=== PATIENT | female | born 1950 | race Caucasian/White ===

== ENCOUNTER 2017-02-27 05:29 | Emergency (ER) | payer MEDICARE ==
[~2017-02-27] VITALS: Ht 154.9 cm; Wt 41.0 kg
[~2017-02-27 05:29] MED LIST: ASPIRIN E.C. 8181 MG PO; BECONASE AQ NA42 MCG NAS; BUSPAR10 MG PO; CALCIUM500 MG PO; CEPHALEXIN500 M1 PO; COZAAR100 MG PO; DESYREL 50MG50 MG; LORTAB 5/500 501 TAB PO; MACROBID 1100 MG/CAP PO; MULTIVITAMIN1 CTB PO; OYSCO 500500 M1 PO; PRILOSEC 20MG20 MG PO; PROTONIX 40MG T40 MG PO; ULTRAM 50MG TAB50 MG PO; VALIUM 2MG T2 MG/TAB PO; VALIUM 5MG T5 MG/TAB PO; ZOCOR 20MG20 MG PO; ZOFRAN ODT4 MG PO; ZOLOFT 50MG50 MG PO
[2017-02-27 05:32] VITALS: BP 152/87; TEMP 99
[2017-02-27 06:02] LABS: BASO % 0.4 % (0.0-2.0); EOS # 0.4 (0.0-0.7); EOS % 3.7 % (0-4.0); GRAN # 7.1 (1.4-6.5); GRAN % 74.1 % (42.2-75.2); HEMOGLOBIN 12.4 g/dl (12.5-16.0); LYMPH # 0.7 (1.2-3.4); LYMPH % 7.6 % (20.0-51.0); MEAN CELL VOLUME 95 fl (80.0-100.0); MEAN CORPUSCULAR HEMOGLOBIN 35 pg (27.0-31.0); MEAN CORPUSCULAR HGB CONC 37 g/dl (33.0-37.0); MONO # 1.3 (0.1-0.6); MONO % 13.6 % (1.7-9.3); PLATELET COUNT 180 K/mm3 (130-400); RED BLOOD COUNT 3.59 M/mm3 (4.10-5.30); REDCELL DISTRIBUTION WIDTH-CV 12.9 % (11.5-14.5); WHITE BLOOD COUNT 9.5 K/mm3 (4.8-10.8)
[2017-02-27 06:18] LABS: ADJUSTED CALCIUM 8.5 mg/dL (8.4-10.2); ALBUMIN 3.7 gm/dL (3.5-5.0); BILIRUBIN,TOTAL 0.8 mg/dL (0.0-1.0); CALCIUM 8.3 mg/dL (8.4-10.2); CREATININE, serum 0.52 mg/dL (0.52-1.25); POTASSIUM 3.5 mmol/L (3.4-5.0)
[2017-02-27 09:06] LABS: ANION GAP 10 mmol/L (7-16); CALCIUM 7.2 mg/dL (8.4-10.2); CARBON DIOXIDE 17 mmol/L (22-30); CHLORIDE 100 mmol/L (98-107); CREATININE, serum 0.57 mg/dL (0.52-1.25); GLUCOSE 123 mg/dL (74-106); POTASSIUM 3.5 mmol/L (3.4-5.0); SODIUM 126 mmol/L (137-145)
[2017-02-27 09:08] LABS: BLOOD UREA NITROGEN < 2 mg/dL (7-17)
[2017-02-27] MEDS ORDERED: LIBRIUM 25M25 MG/CAP PO (09:24)
[2017-02-27] MEDS ORDERED: LOMOTIL 0.025 M1 TAB PO (09:26)
[2017-02-27 09:41] VITALS: PULSE 101
== END 2017-02-27 09:42 | disposition left against medical advice (07) ==
LOC: COL.ER 05:29
PROVIDERS: Emergency Medicine
DX: F10.230 Alcohol dependence with withdrawal, uncomplicated (principal); E87.8 Other disorders of electrolyte and fluid balance, not elsewhere classified; K52.9 Noninfective gastroenteritis and colitis, unspecified; I10 Essential (primary) hypertension; F17.210 Nicotine dependence, cigarettes, uncomplicated; K21.9 Gastro-esophageal reflux disease without esophagitis
CPT/HCPCS: J2765; J3360; J3411; J3475; J7030

== ENCOUNTER → 2017-03-10 | Outpatient (CLI) | payer MEDICARE ==
[~2017-03-10] MED LIST changes: +K-DUR20 MEQ PO; +LEVAQUIN 5500 MG/TA1; +LIBRIUM 10M10 MG/CAP PO; +LIBRIUM 25M25 MG/CAP PO; +LIDODERM 5% PATC1 EA TP; +LOMOTIL 0.025 M1 TAB PO; +MAG-OX 400400 MG/TAB PO; +MULTIPLE VITAMI1 CAP PO; +TRIAMCINOLONE A15 G3 TP; +TYLENOL 325MG325 MG PO
[2017-03-10 12:49] LABS: BILIRUBIN,TOTAL 0.6 mg/dL (0.0-1.0); CALCIUM 8.2 mg/dL (8.4-10.2); CREATININE, serum 0.5 mg/dL (0.52-1.25); POTASSIUM 3.7 mmol/L (3.4-5.0); TOTAL PROTEIN 6.2 gm/dL (6.4-8.2)
== END ==
LOC: COL.RAD 10:56
PROVIDERS: Family Medicine
DX: Z02.89 Encounter for other administrative examinations (principal)

== ENCOUNTER 2017-03-11 10:55 | Inpatient (IN) | payer MEDICARE ==
[~2017-03-11] VITALS: Ht 154.9 cm; Wt 43.4 kg
[~2017-03-11 10:55] MED LIST changes: -K-DUR20 MEQ PO; -LEVAQUIN 5500 MG/TA1; -LIBRIUM 10M10 MG/CAP PO; -LIDODERM 5% PATC1 EA TP; -MAG-OX 400400 MG/TAB PO; -MULTIPLE VITAMI1 CAP PO; -TRIAMCINOLONE A15 G3 TP; -TYLENOL 325MG325 MG PO
[2017-03-11 11:28] VITALS: BP 121/63; PULSE 95; TEMP 100.5
[2017-03-11 12:56] VITALS: TEMP 100.1
[2017-03-11 15:30] LABS: BASO # 0.1 (0.0-0.2); BASO % 1.3 % (0.0-2.0); EOS # 0.4 (0.0-0.7); EOS % 4.7 % (0-4.0); GRAN # 5.3 (1.4-6.5); GRAN % 70.3 % (42.2-75.2); HEMATOCRIT 32.6 % (37.0-47.0); HEMOGLOBIN 11.2 g/dl (12.5-16.0); LYMPH % 13.3 % (20.0-51.0); MEAN CELL VOLUME 98 fl (80.0-100.0); MEAN CORPUSCULAR HEMOGLOBIN 34 pg (27.0-31.0); MEAN CORPUSCULAR HGB CONC 34 g/dl (33.0-37.0); MEAN PLATELET VOLUME 8.7 fl (7.4-10.4); MONO # 0.7 (0.1-0.6); MONO % 9.7 % (1.7-9.3); PLATELET COUNT 554 K/mm3 (130-400); RED BLOOD COUNT 3.34 M/mm3 (4.10-5.30); REDCELL DISTRIBUTION WIDTH-CV 13.2 % (11.5-14.5); WHITE BLOOD COUNT 7.5 K/mm3 (4.8-10.8)
[2017-03-11 15:40] LABS: ADJUSTED CALCIUM 9.1 mg/dL (8.4-10.2); ALANINE AMINOTRANSFERASE 30 U/L (9-52); ALBUMIN 2.7 gm/dL (3.5-5.0); ALKALINE PHOSPHATASE 100 U/L (50-136); ANION GAP 9 mmol/L (7-16); BILIRUBIN,TOTAL 0.6 mg/dL (0.0-1.0); BLOOD UREA NITROGEN 7 mg/dL (7-17); CALCIUM 8.1 mg/dL (8.4-10.2); CARBON DIOXIDE 25 mmol/L (22-30); CHLORIDE 96 mmol/L (98-107); CREATININE, serum 0.52 mg/dL (0.52-1.25); GLUCOSE 83 mg/dL (74-106); MAGNESIUM 1.4 mg/dL (1.6-2.3); POTASSIUM 3.4 mmol/L (3.4-5.0); SODIUM 130 mmol/L (137-145); TOTAL PROTEIN 5.5 gm/dL (6.4-8.2)
[2017-03-11 15:50] LABS: B-TYPE NATRIURETIC PEPTIDE 9230 pg/mL (0-125); TROPONIN-I < 0.012 ng/mL (0.000-0.034)
[2017-03-11 15:59] LABS: ERYTHROCYTE SEDIMENTATION RATE 16 mm/hr (0-30)
[2017-03-11 16:08] LABS: THYROID STIMULATING HORMONE 0.476 uIU/mL (0.465-4.680)
[2017-03-11 16:40] VITALS: BP 115/47; PULSE 102; TEMP 98
[2017-03-11 16:59] LABS: PH 6 (5-8); URINE APPEARANCE Clear; URINE BACTERIA Rare /hpf; URINE BILIRUBIN Negative (NEGATIVE); URINE BLOOD Negative (NEGATIVE); URINE COLOR Yellow; URINE GLUCOSE Negative (NEGATIVE); URINE KETONE Trace (NEGATIVE); URINE RBC 0-2 /hpf; URINE UROBILINOGEN Negative (NEGATIVE); URINE WBC 0-2 /hpf
[2017-03-11 17:04] LABS: AMPHETAMINE URINE NEGATIVE; BARBITURATES URINE NEGATIVE; BENZODIAZEPINES URINE POSITIVE; BUPRENORPHINE URINE NEGATIVE; METHADONE URINE NEGATIVE; OPIATES URINE NEGATIVE; OXYCODONE URINE NEGATIVE; PHENCYCLIDINE URINE NEGATIVE; PROPOXYPHENE URINE NEGATIVE; THC CANNABINOIDS URINE NEGATIVE
[2017-03-11 21:18] VITALS: BP 112/51; PULSE 88; TEMP 98.8
[2017-03-12 00:02] VITALS: BP 131/50; PULSE 92; TEMP 98.5
[2017-03-12 02:36] VITALS: BP 111/52; PULSE 90; TEMP 97.4
[2017-03-12 08:09] VITALS: BP 111/56; PULSE 89; TEMP 98.3
[2017-03-12 12:13] VITALS: BP 129/53; PULSE 91; TEMP 99.8
[2017-03-12 12:20] LABS: CALCIUM 7.9 mg/dL (8.4-10.2); CREATININE, serum 0.49 mg/dL (0.52-1.25); POTASSIUM 3.9 mmol/L (3.4-5.0)
[2017-03-12 13:19] LABS: CEREBROSPINAL TUBE #3; CSF APPEARANCE CLEAR; CSF COLOR COLORLESS
[2017-03-12 15:59] LABS: THYROID STIMULATING HORMONE 0.637 uIU/mL (0.465-4.680)
[2017-03-12 16:06] VITALS: BP 107/55; PULSE 78; TEMP 98.1
[2017-03-12 20:06] VITALS: BP 138/70; PULSE 97; TEMP 98.7
[2017-03-13 00:19] VITALS: BP 134/72; PULSE 98; TEMP 98.1
[2017-03-13 07:19] VITALS: BP 127/63; PULSE 97; TEMP 98
[2017-03-13 07:50] LABS: BASO # 0.1 (0.0-0.2); BASO % 1.8 % (0.0-2.0); EOS # 0.5 (0.0-0.7); EOS % 6.8 % (0-4.0); GRAN % 68.4 % (42.2-75.2); LYMPH % 13.3 % (20.0-51.0); MEAN CELL VOLUME 98 fl (80.0-100.0); MEAN CORPUSCULAR HGB CONC 34 g/dl (33.0-37.0); MEAN PLATELET VOLUME 8.8 fl (7.4-10.4); MONO # 0.7 (0.1-0.6); PLATELET COUNT 526 K/mm3 (130-400); RED BLOOD COUNT 3.42 M/mm3 (4.10-5.30); REDCELL DISTRIBUTION WIDTH-CV 13.2 % (11.5-14.5); WHITE BLOOD COUNT 7.2 K/mm3 (4.8-10.8)
[2017-03-13 07:57] LABS: HEMATOCRIT 33.5 % (37.0-47.0); HEMOGLOBIN 11.3 g/dl (12.5-16.0); MEAN CORPUSCULAR HEMOGLOBIN 33 pg (27.0-31.0)
[2017-03-13 08:02] LABS: CALCIUM 7.7 mg/dL (8.4-10.2); CREATININE, serum 0.52 mg/dL (0.52-1.25); POTASSIUM 4.1 mmol/L (3.4-5.0)
[2017-03-13 11:36] VITALS: BP 149/72; PULSE 87; TEMP 98.7
[2017-03-13 15:07] VITALS: BP 111/54; BP 94/53; PULSE 100; TEMP 100.4
[2017-03-13 21:30] VITALS: BP 100/53; PULSE 81; TEMP 99.8
[2017-03-14 01:35] VITALS: BP 111/61; PULSE 78; TEMP 98.3
[2017-03-14 04:58] VITALS: BP 125/58; PULSE 104; TEMP 99.4
[2017-03-14 08:31] VITALS: BP 123/63; PULSE 87; TEMP 99
[2017-03-14 09:20] LABS: MEAN CELL VOLUME 97 fl (80.0-100.0); MEAN CORPUSCULAR HGB CONC 34 g/dl (33.0-37.0); PLATELET COUNT 500 K/mm3 (130-400); RED BLOOD COUNT 3.33 M/mm3 (4.10-5.30); REDCELL DISTRIBUTION WIDTH-CV 13.3 % (11.5-14.5); WHITE BLOOD COUNT 7.1 K/mm3 (4.8-10.8)
[2017-03-14 09:23] LABS: HEMATOCRIT 32.4 % (37.0-47.0); HEMOGLOBIN 11.1 g/dl (12.5-16.0); MEAN CORPUSCULAR HEMOGLOBIN 33 pg (27.0-31.0)
[2017-03-14 09:24] LABS: ADD PATHOLOGY DIFF REVIEW NO
[2017-03-14 09:27] LABS: CALCIUM 7.9 mg/dL (8.4-10.2); CREATININE, serum 0.55 mg/dL (0.52-1.25); POTASSIUM 3.4 mmol/L (3.4-5.0)
[2017-03-14 10:19] LABS: BAND 28 % (0-10); EOSINOPHIL 3 % (0-4); NEUTROPHILS 57 % (42.0-75.2); PLATELET ESTIMATE INCREASED (NORMAL); TOTAL CELLS COUNTED 100
[2017-03-14 11:02] VITALS: BP 98/45; PULSE 90; TEMP 97.9
[2017-03-14] MEDS ORDERED: MULTIPLE VITAMI1 CAP PO (11:42)
[2017-03-14] MEDS ORDERED: LIBRIUM 10M10 MG/CAP PO (11:51)
[2017-03-14 13:09] VITALS: BP 98/45; PULSE 90; TEMP 97.9
[2017-03-14 15:57] LABS: ALBUMIN FRACTION 2.7 g/dL (2.6-4.5); ALBUMIN PERCENTAGE 48.7 % (48.7-61.8); ALPHA 1 FRACTION 0.5 g/dL (0.3-0.5); ALPHA 1 PERCENTAGE 8.6 % (3.4-8.3); ALPHA 2 FRACTION 0.9 g/dL (0.6-1.2); ALPHA 2 PERCENTAGE 16.6 % (8.4-17.5); BETA 1 FRACTION 0.2 g/dL (0.4-0.6); BETA 1 PERCENTAGE 4.3 % (5.4-8.9); BETA 2 FRACTION 0.3 g/dL (0.2-0.5); GAMMA FRACTION 0.9 g/dL (0.4-1.7); GAMMA PERCENTAGE 16.8 % (8.1-23.0); SERUM PROTEIN TOTAL 5.5 g/dL (6.0-7.6)
== END 2017-03-14 13:57 | DRG 74 ==
LOC: MEDICAL 10:55
PROVIDERS: Internal Medicine; Physician Assistant; Psychiatry & Neurology Neurology
PROC: 009U3ZX Drainage of Spinal Canal, Percutaneous Approach, Diagnostic (ICD-10-PCS; principal; 2017-03-12)
DX: G61.81 Chronic inflammatory demyelinating polyneuritis (principal); E87.1 Hypo-osmolality and hyponatremia; E44.0 Moderate protein-calorie malnutrition; Z68.1 Body mass index [BMI] 19.9 or less, adult; G62.1 Alcoholic polyneuropathy; I10 Essential (primary) hypertension; D64.9 Anemia, unspecified; F10.20 Alcohol dependence, uncomplicated; Z87.891 Personal history of nicotine dependence
CPT/HCPCS: 99222-AI; 99233-AI; 99239; A9585; J1650; J3411; J3475; J7030

== ENCOUNTER 2017-03-14 11:13 | Inpatient (IN) | payer MEDICARE ==
[~2017-03-14] VITALS: Ht 154.9 cm; Wt 43.0 kg
[2017-03-14] MEDS ORDERED: MULTIPLE VITAMI1 CAP PO (11:42)
[2017-03-14] MEDS ORDERED: LIBRIUM 10M10 MG/CAP PO (11:51)
[2017-03-14 14:52] VITALS: BP 113/58; PULSE 81; TEMP 98.2
[2017-03-15 04:48] VITALS: BP 136/61; PULSE 99; TEMP 98.8
[2017-03-15 17:20] VITALS: BP 121/58; PULSE 89; TEMP 97.5
[2017-03-16 06:14] VITALS: BP 141/59; PULSE 94; TEMP 98.9
[2017-03-16 17:05] VITALS: BP 136/76; PULSE 79; TEMP 97.6
[2017-03-17 05:22] VITALS: BP 134/64; PULSE 84; TEMP 98.3
[2017-03-17 16:35] VITALS: BP 157/68; PULSE 92; TEMP 98.6
[2017-03-18 04:07] VITALS: BP 150/75; PULSE 102; TEMP 98.6
[2017-03-18 07:24] LABS: BASO # 0.1 (0.0-0.2); BASO % 1.5 % (0.0-2.0); EOS # 0.7 (0.0-0.7); EOS % 7.2 % (0-4.0); GRAN # 6.8 (1.4-6.5); GRAN % 73.7 % (42.2-75.2); LYMPH # 0.9 (1.2-3.4); LYMPH % 9.8 % (20.0-51.0); MEAN CELL VOLUME 95 fl (80.0-100.0); MEAN CORPUSCULAR HGB CONC 34 g/dl (33.0-37.0); MEAN PLATELET VOLUME 9.3 fl (7.4-10.4); MONO # 0.6 (0.1-0.6); PLATELET COUNT 448 K/mm3 (130-400); RED BLOOD COUNT 3.53 M/mm3 (4.10-5.30); REDCELL DISTRIBUTION WIDTH-CV 13.5 % (11.5-14.5); WHITE BLOOD COUNT 9.2 K/mm3 (4.8-10.8)
[2017-03-18 07:26] LABS: HEMATOCRIT 33.6 % (37.0-47.0); HEMOGLOBIN 11.5 g/dl (12.5-16.0); MEAN CORPUSCULAR HEMOGLOBIN 33 pg (27.0-31.0)
[2017-03-18 07:37] LABS: ADJUSTED CALCIUM 9.4 mg/dL (8.4-10.2); ALBUMIN 2.7 gm/dL (3.5-5.0); BILIRUBIN,TOTAL 0.4 mg/dL (0.0-1.0); CALCIUM 8.4 mg/dL (8.4-10.2); CREATININE, serum 0.54 mg/dL (0.52-1.25); MAGNESIUM 1.3 mg/dL (1.6-2.3); POTASSIUM 3.5 mmol/L (3.4-5.0); TOTAL PROTEIN 5.7 gm/dL (6.4-8.2)
[2017-03-18 17:39] VITALS: BP 124/68; PULSE 90; TEMP 98
[2017-03-19 04:59] VITALS: BP 131/60; PULSE 93; TEMP 98.9
[2017-03-19 16:16] VITALS: BP 111/57; PULSE 93; TEMP 99.4
[2017-03-20 04:13] VITALS: BP 115/58; PULSE 88; TEMP 99
[2017-03-20 18:00] VITALS: BP 129/78; PULSE 96; TEMP 99.5
[2017-03-21 03:46] VITALS: BP 107/63; PULSE 94; TEMP 98.1
[2017-03-21 07:29] LABS: CALCIUM 9.3 mg/dL (8.4-10.2); CREATININE, serum 0.53 mg/dL (0.52-1.25); MAGNESIUM 1.9 mg/dL (1.6-2.3); POTASSIUM 4.6 mmol/L (3.4-5.0)
[2017-03-21 17:03] VITALS: BP 110/53; PULSE 83; TEMP 98.1
[2017-03-22 04:54] VITALS: BP 101/47; PULSE 94; TEMP 97.4
[2017-03-22 18:12] VITALS: BP 145/64; PULSE 99; TEMP 98.7
[2017-03-23 04:40] VITALS: BP 136/57; PULSE 92; TEMP 98.8
[2017-03-23 17:12] VITALS: BP 132/56; PULSE 96; TEMP 99.5
[2017-03-24 05:45] VITALS: BP 124/80; PULSE 91; TEMP 98.6
[2017-03-24 18:00] VITALS: BP 148/60; PULSE 89; TEMP 99.8
[2017-03-25 05:47] VITALS: BP 112/80; PULSE 92; TEMP 97.5
[2017-03-25] MEDS ORDERED: TYLENOL 325MG325 MG PO (11:22)
[2017-03-25] MEDS ORDERED: K-DUR20 MEQ PO (11:23)
[2017-03-25] MEDS ORDERED: MAG-OX 400400 MG/TAB PO (11:24)
[2017-03-25] MEDS ORDERED: LIDODERM 5% PATC1 EA TP (11:25)
[2017-03-25] MEDS ORDERED: LIBRIUM 10M10 MG/CAP PO (11:25)
[2017-03-25 16:13] VITALS: BP 119/61; PULSE 86; TEMP 99.5
== END 2017-03-25 18:30 | disposition home health service (06) | DRG 73 ==
PROVIDERS: Internal Medicine
DX: G60.8 Other hereditary and idiopathic neuropathies (principal); E43 Unspecified severe protein-calorie malnutrition; E87.1 Hypo-osmolality and hyponatremia; Z68.1 Body mass index [BMI] 19.9 or less, adult; G62.1 Alcoholic polyneuropathy; I10 Essential (primary) hypertension; F10.10 Alcohol abuse, uncomplicated; Z87.891 Personal history of nicotine dependence; M54.2 Cervicalgia; E83.42 Hypomagnesemia
CPT/HCPCS: 99222-AI; 99232-AI; 99239; J1650; J3475

== ENCOUNTER 2017-04-06 11:47 | Outpatient (RCR) | payer MEDICARE ==
[~2017-04-06] VITALS: Ht 154.9 cm; Wt 42.0 kg
[~2017-04-06 11:47] MED LIST changes: +K-DUR20 MEQ PO; +LIBRIUM 10M10 MG/CAP PO; +LIDODERM 5% PATC1 EA TP; +MAG-OX 400400 MG/TAB PO; +MULTIPLE VITAMI1 CAP PO; +TYLENOL 325MG325 MG PO
[2017-04-06 12:28] VITALS: BP 117/61; PULSE 103; TEMP 99
[2017-04-06 17:48] VITALS: BP 119/76; PULSE 96; TEMP 99
[2017-04-06] MEDS ORDERED: TRIAMCINOLONE A15 G3 TP (18:30)
[2017-04-07 08:48] VITALS: BP 138/80; PULSE 72; TEMP 98.4
[2017-04-07 08:54] LABS: ADJUSTED CALCIUM 9.2 mg/dL (8.4-10.2); ALBUMIN 3.3 gm/dL (3.5-5.0); BILIRUBIN,TOTAL 0.9 mg/dL (0.0-1.0); CALCIUM 8.6 mg/dL (8.4-10.2); CREATININE, serum 0.4 mg/dL (0.52-1.25); POTASSIUM 3.7 mmol/L (3.4-5.0); TOTAL PROTEIN 6.8 gm/dL (6.4-8.2)
[2017-04-07 13:13] LABS: URIC ACID 1.6 mg/dL (2.5-6.2)
[2017-04-07] MEDS ORDERED: LIBRIUM 10M10 MG/CAP PO (13:50)
[2017-04-07] MEDS ORDERED: COZAAR100 MG PO (13:50)
[2017-04-07] MEDS ORDERED: MAG-OX 400400 MG/TAB PO (13:51)
[2017-04-07] MEDS ORDERED: PROTONIX 40MG T40 MG PO (13:51)
[2017-04-07] MEDS ORDERED: MULTIPLE VITAMI1 CAP PO (13:52)
[2017-04-07] MEDS ORDERED: K-DUR20 MEQ PO (13:52)
[2017-04-08] MEDS ORDERED: LEVAQUIN 5500 MG/TA1 (20:12)
== END 2017-07-05 ==
LOC: EUO → EDSTATUS 16:51
PROVIDERS: Family Medicine
DX: E87.1 Hypo-osmolality and hyponatremia (principal); J18.9 Pneumonia, unspecified organism; J98.4 Other disorders of lung; I25.10 Atherosclerotic heart disease of native coronary artery without angina pectoris; M85.80 Other specified disorders of bone density and structure, unspecified site; F10.10 Alcohol abuse, uncomplicated; Z87.891 Personal history of nicotine dependence
CPT/HCPCS: J7030

== ENCOUNTER 2017-04-07 12:54 | Inpatient (IN) | payer MEDICARE ==
[~2017-04-07] VITALS: Ht 154.9 cm; Wt 43.1 kg
[~2017-04-07 12:54] MED LIST changes: +TRIAMCINOLONE A15 G3 TP
[2017-04-07 13:41] VITALS: BP 130/50; PULSE 96; TEMP 99.3
[2017-04-07] MEDS ORDERED: COZAAR100 MG PO (13:50)
[2017-04-07] MEDS ORDERED: LIBRIUM 10M10 MG/CAP PO (13:50)
[2017-04-07] MEDS ORDERED: MAG-OX 400400 MG/TAB PO (13:51)
[2017-04-07] MEDS ORDERED: PROTONIX 40MG T40 MG PO (13:51)
[2017-04-07] MEDS ORDERED: MULTIPLE VITAMI1 CAP PO (13:52)
[2017-04-07] MEDS ORDERED: K-DUR20 MEQ PO (13:52)
[2017-04-07 15:52] VITALS: BP 120/54; PULSE 104; TEMP 98.9
[2017-04-07 16:21] LABS: CALCIUM 8.1 mg/dL (8.4-10.2); CREATININE, serum 0.62 mg/dL (0.52-1.25); POTASSIUM 3.4 mmol/L (3.4-5.0); URIC ACID 1.9 mg/dL (2.5-6.2)
[2017-04-07 16:46] LABS: PH 6 (5-8); SQUAMOUS EPITHELIAL None Seen /hpf; URINE APPEARANCE Clear; URINE BACTERIA Rare /hpf; URINE BILIRUBIN Negative (NEGATIVE); URINE BLOOD Negative (NEGATIVE); URINE COLOR Yellow; URINE GLUCOSE Negative (NEGATIVE); URINE KETONE Trace (NEGATIVE); URINE RBC 0-2 /hpf; URINE UROBILINOGEN Negative (NEGATIVE); URINE WBC 0-2 /hpf
[2017-04-07 21:04] VITALS: BP 115/47; PULSE 112; TEMP 98.1
[2017-04-07 22:36] LABS: CALCIUM 8.5 mg/dL (8.4-10.2); CREATININE, serum 0.5 mg/dL (0.52-1.25); POTASSIUM 3.9 mmol/L (3.4-5.0)
[2017-04-08 00:34] VITALS: BP 134/62; PULSE 99; TEMP 98.7
[2017-04-08 01:39] LABS: CALCIUM 8.4 mg/dL (8.4-10.2); CREATININE, serum 0.42 mg/dL (0.52-1.25); POTASSIUM 3.2 mmol/L (3.4-5.0)
[2017-04-08 04:12] LABS: CALCIUM 8.5 mg/dL (8.4-10.2); CREATININE, serum 0.4 mg/dL (0.52-1.25); POTASSIUM 3.1 mmol/L (3.4-5.0)
[2017-04-08 05:20] VITALS: BP 132/69; PULSE 92; TEMP 98.1
[2017-04-08 07:38] VITALS: BP 134/45; PULSE 84; TEMP 98.2
[2017-04-08 11:52] VITALS: BP 132/60; PULSE 102; TEMP 97.8
[2017-04-08 13:29] LABS: CALCIUM 8.6 mg/dL (8.4-10.2); CREATININE, serum 0.41 mg/dL (0.52-1.25); POTASSIUM 3.3 mmol/L (3.4-5.0)
[2017-04-08 15:44] VITALS: BP 126/56; PULSE 99; TEMP 98.3
[2017-04-08 18:13] LABS: CALCIUM 8.7 mg/dL (8.4-10.2); CREATININE, serum 0.4 mg/dL (0.52-1.25); POTASSIUM 3.7 mmol/L (3.4-5.0)
[2017-04-08] MEDS ORDERED: LEVAQUIN 5500 MG/TA1 (20:12)
== END 2017-04-08 20:36 | disposition home or self-care (01) | DRG 643 ==
LOC: MEDICAL 12:54
PROVIDERS: Family Medicine; Internal Medicine
DX: E22.2 Syndrome of inappropriate secretion of antidiuretic hormone (principal); J18.9 Pneumonia, unspecified organism; E43 Unspecified severe protein-calorie malnutrition; G61.81 Chronic inflammatory demyelinating polyneuritis; Z68.1 Body mass index [BMI] 19.9 or less, adult; I10 Essential (primary) hypertension
CPT/HCPCS: G0378; G0379; J1956; J7030; J7070; Q9967

== ENCOUNTER → 2017-06-28 | Outpatient (CLI) | payer MEDICARE ==
[~2017-06-28] MED LIST changes: +LEVAQUIN 5500 MG/TA1
== END ==
LOC: COL.VAS 07:44
DX: I35.8 Other nonrheumatic aortic valve disorders (principal)

== ENCOUNTER 2017-07-25 10:17 | Outpatient (CLI) | payer MEDICARE ==
[~2017-07-25] VITALS: Ht 154.9 cm; Wt 42.9 kg
[2017-07-25] MEDS ORDERED: ANORO IH (10:53)
[2017-07-25 11:02] LABS: BASO # 0.1 (0.0-0.2); BASO % 1.4 % (0.0-2.0); EOS # 0.3 (0.0-0.7); EOS % 4.8 % (0-4.0); GRAN # 3.4 (1.4-6.5); GRAN % 60.8 % (42.2-75.2); HEMOGLOBIN 14.3 g/dl (12.5-16.0); LYMPH # 1.3 (1.2-3.4); MEAN CELL VOLUME 93 fl (80.0-100.0); MEAN CORPUSCULAR HEMOGLOBIN 33 pg (27.0-31.0); MEAN CORPUSCULAR HGB CONC 36 g/dl (33.0-37.0); MEAN PLATELET VOLUME 8.4 fl (7.4-10.4); MONO # 0.5 (0.1-0.6); MONO % 9.6 % (1.7-9.3); PLATELET COUNT 179 K/mm3 (130-400); RED BLOOD COUNT 4.31 M/mm3 (4.10-5.30); WHITE BLOOD COUNT 5.6 K/mm3 (4.8-10.8)
[2017-07-25 11:10] LABS: ADJUSTED CALCIUM 8.7 mg/dL (8.4-10.2); ALBUMIN 4.6 gm/dL (3.5-5.0); BILIRUBIN,TOTAL 0.8 mg/dL (0.0-1.0); CALCIUM 9.2 mg/dL (8.4-10.2); CREATININE, serum 0.5 mg/dL (0.52-1.25); POTASSIUM 3.8 mmol/L (3.4-5.0); TOTAL PROTEIN 7.5 gm/dL (6.4-8.2)
[2017-07-25 11:29] VITALS: BP 144/59; PULSE 89; TEMP 98.2
== END 2017-07-25 13:42 | disposition home or self-care (01) ==
LOC: EUO 10:17
PROVIDERS: Family Medicine
DX: F10.239 Alcohol dependence with withdrawal, unspecified (principal)
CPT/HCPCS: J7030

== ENCOUNTER → 2017-10-28 | Outpatient (CLI) | payer MEDICARE ==
[~2017-10-28] MED LIST changes: +ANORO IH
== END ==
LOC: MC.RAD 06:53
DX: Z12.31 Encounter for screening mammogram for malignant neoplasm of breast (principal)

== ENCOUNTER → 2017-11-11 | Outpatient (CLI) | payer MEDICARE | LOC: COL.LAB 09:00 | DX: J44.9 Chronic obstructive pulmonary disease, unspecified (principal) ==

== ENCOUNTER 2017-12-19 10:31 | Outpatient (CLI) | payer MEDICARE ==
[~2017-12-19] VITALS: Ht 154.9 cm; Wt 42.0 kg
[2017-12-19 11:02] VITALS: BP 128/49; PULSE 107; TEMP 98.1
[2017-12-19 14:09] VITALS: BP 152/75; PULSE 108
== END 2017-12-19 14:30 | disposition home or self-care (01) ==
LOC: EUO 10:31
DX: E87.1 Hypo-osmolality and hyponatremia (principal)
CPT/HCPCS: J7030

== ENCOUNTER 2017-12-22 09:57 | Inpatient (IN) | payer MEDICARE ==
[~2017-12-22] VITALS: Ht 152.4 cm; Wt 44.5 kg
[2017-12-22] MEDS ORDERED: ZOLOFT 25MG25 MG PO (10:31)
[2017-12-22 10:58] LABS: ALANINE AMINOTRANSFERASE 33 U/L (9-52); ALBUMIN 2.9 gm/dL (3.5-5.0); ALKALINE PHOSPHATASE 125 U/L (50-136); ANION GAP 10 mmol/L (7-16); AST,SGOT 22 U/L (15-37); BILIRUBIN,TOTAL 0.7 mg/dL (0.0-1.0); BLOOD UREA NITROGEN 4 mg/dL (7-17); CALCIUM 7.9 mg/dL (8.4-10.2); CARBON DIOXIDE 22 mmol/L (22-30); CREATININE, serum 0.35 mg/dL (0.52-1.25); GLUCOSE 147 mg/dL (74-106); TOTAL PROTEIN 6.1 gm/dL (6.4-8.2)
[2017-12-22 11:06] LABS: ALCOHOL(ethanol),MEDICAL < 10 mg/dL; CHLORIDE 83 mmol/L (98-107); POTASSIUM 2.9 mmol/L (3.4-5.0); SODIUM 114 mmol/L (137-145)
[2017-12-22 11:25] VITALS: BP 119/66; PULSE 100; TEMP 99
[2017-12-22 11:31] VITALS: BP 119/66; PULSE 100; TEMP 99
[2017-12-22 11:39] LABS: MEAN CELL VOLUME 93 fl (80.0-100.0); MEAN CORPUSCULAR HGB CONC 38 g/dl (33.0-37.0); MEAN PLATELET VOLUME 8.6 fl (7.4-10.4); PLATELET COUNT 354 K/mm3 (130-400); REDCELL DISTRIBUTION WIDTH-CV 11.4 % (11.5-14.5)
[2017-12-22 11:41] LABS: HEMATOCRIT 30.7 % (37.0-47.0); HEMOGLOBIN 11.5 g/dl (12.5-16.0); MEAN CORPUSCULAR HEMOGLOBIN 35 pg (27.0-31.0)
[2017-12-22 16:13] VITALS: BP 93/46; PULSE 103; TEMP 98.6
[2017-12-22 19:24] VITALS: BP 89/51; PULSE 51; TEMP 98.6
[2017-12-22 23:25] VITALS: BP 96/57; PULSE 99; TEMP 98.6
[2017-12-23 04:06] VITALS: BP 106/59; PULSE 98; TEMP 98
[2017-12-23 07:01] LABS: ALBUMIN 2.3 gm/dL (3.5-5.0); BILIRUBIN,TOTAL 0.4 mg/dL (0.0-1.0); CALCIUM 7.5 mg/dL (8.4-10.2); CREATININE, serum 0.35 mg/dL (0.52-1.25); POTASSIUM 3.1 mmol/L (3.4-5.0); TOTAL PROTEIN 5.1 gm/dL (6.4-8.2)
[2017-12-23 07:32] VITALS: BP 114/59; PULSE 103; TEMP 98.5
[2017-12-23 09:41] LABS: COLLECTION METHOD CLEAN CATCH
[2017-12-23 09:50] LABS: MUCOUS Present /lpf; PH 6 (5-8); SQUAMOUS EPITHELIAL 0-2 /hpf; URINE APPEARANCE Clear; URINE BACTERIA None Seen /hpf; URINE BILIRUBIN Negative (NEGATIVE); URINE BLOOD Negative (NEGATIVE); URINE COLOR Yellow; URINE GLUCOSE Negative (NEGATIVE); URINE KETONE Trace (NEGATIVE); URINE LEUKOCYTE ESTERASE Negative (NEGATIVE); URINE NITRATE Negative (NEGATIVE); URINE PROTEIN(semi-quant) Negative (NEGATIVE); URINE RBC 0-2 /hpf; URINE UROBILINOGEN >=4.0 mg/dL (NEGATIVE)
[2017-12-23 12:00] VITALS: BP 128/62; PULSE 112; TEMP 98.9
[2017-12-23 15:58] VITALS: BP 118/49; PULSE 109; TEMP 98.7
[2017-12-23 21:03] VITALS: BP 148/65; PULSE 118; TEMP 98.6
[2017-12-24] VITALS (7 sets, daily range): BP systolic 123–150; BP diastolic 50–89; PULSE 61–122; TEMP 97–99
[2017-12-24 06:37] LABS: MEAN CORPUSCULAR HGB CONC 35 g/dl (33.0-37.0); MEAN PLATELET VOLUME 8.6 fl (7.4-10.4); PLATELET COUNT 380 K/mm3 (130-400); RED BLOOD COUNT 3.09 M/mm3 (4.10-5.30); REDCELL DISTRIBUTION WIDTH-CV 12.1 % (11.5-14.5)
[2017-12-24 06:48] LABS: HEMATOCRIT 30.5 % (37.0-47.0); HEMOGLOBIN 10.8 g/dl (12.5-16.0); MEAN CELL VOLUME 99 fl (80.0-100.0); MEAN CORPUSCULAR HEMOGLOBIN 35 pg (27.0-31.0)
[2017-12-24 06:57] LABS: ALBUMIN 2.5 gm/dL (3.5-5.0); BILIRUBIN,TOTAL 0.4 mg/dL (0.0-1.0); CALCIUM 7.7 mg/dL (8.4-10.2); CREATININE, serum 0.31 mg/dL (0.52-1.25); POTASSIUM 3.2 mmol/L (3.4-5.0); TOTAL PROTEIN 5.7 gm/dL (6.4-8.2)
[2017-12-24 08:57] LABS: BAND 9 % (0-10); HYPOCHROMIA 1+; LYMPHOCYTE 5 % (20.0-51.0); NEUTROPHILS 82 % (42.0-75.2); PLATELET ESTIMATE NORMAL (NORMAL)
[2017-12-25 04:31] VITALS: BP 120/66; PULSE 102; TEMP 97.3
[2017-12-25 06:53] LABS: ALBUMIN 2.4 gm/dL (3.5-5.0); BILIRUBIN,TOTAL 0.2 mg/dL (0.0-1.0); CALCIUM 7.7 mg/dL (8.4-10.2); CREATININE, serum 0.31 mg/dL (0.52-1.25); TOTAL PROTEIN 5.2 gm/dL (6.4-8.2)
[2017-12-25 08:08] VITALS: BP 113/59; PULSE 101; TEMP 98.2
[2017-12-25 10:09] LABS: BASO # 0.1 (0.0-0.2); BASO % 0.8 % (0.0-2.0); EOS # 0.2 (0.0-0.7); EOS % 1.7 % (0-4.0); GRAN # 8.9 (1.4-6.5); GRAN % 77.5 % (42.2-75.2); LYMPH # 0.9 (1.2-3.4); LYMPH % 8.1 % (20.0-51.0); MEAN CELL VOLUME 97 fl (80.0-100.0); MEAN CORPUSCULAR HGB CONC 36 g/dl (33.0-37.0); MEAN PLATELET VOLUME 8.1 fl (7.4-10.4); MONO # 1.3 (0.1-0.6); MONO % 11.1 % (1.7-9.3); PLATELET COUNT 375 K/mm3 (130-400); RED BLOOD COUNT 2.87 M/mm3 (4.10-5.30); REDCELL DISTRIBUTION WIDTH-CV 12.2 % (11.5-14.5)
[2017-12-25 10:10] LABS: HEMATOCRIT 27.9 % (37.0-47.0); HEMOGLOBIN 9.9 g/dl (12.5-16.0); MEAN CORPUSCULAR HEMOGLOBIN 34 pg (27.0-31.0)
[2017-12-25 11:42] VITALS: BP 122/57; PULSE 113; TEMP 98.4
[2017-12-25 16:04] VITALS: BP 118/58; PULSE 123; TEMP 98.6
[2017-12-25 19:54] VITALS: BP 119/63; PULSE 111; TEMP 98
[2017-12-25 23:42] VITALS: BP 113/67; PULSE 98; TEMP 98
[2017-12-26 03:33] VITALS: BP 118/59; PULSE 101; TEMP 98
[2017-12-26 06:34] LABS: BASO # 0.1 (0.0-0.2); BASO % 0.7 % (0.0-2.0); EOS # 0.3 (0.0-0.7); EOS % 2.6 % (0-4.0); GRAN # 7.4 (1.4-6.5); LYMPH # 1.1 (1.2-3.4); LYMPH % 11.1 % (20.0-51.0); MEAN CELL VOLUME 97 fl (80.0-100.0); MEAN CORPUSCULAR HGB CONC 35 g/dl (33.0-37.0); MEAN PLATELET VOLUME 8.3 fl (7.4-10.4); MONO # 1.1 (0.1-0.6); MONO % 10.8 % (1.7-9.3); PLATELET COUNT 471 K/mm3 (130-400); RED BLOOD COUNT 2.88 M/mm3 (4.10-5.30); REDCELL DISTRIBUTION WIDTH-CV 12.4 % (11.5-14.5)
[2017-12-26 06:38] LABS: HEMOGLOBIN 9.8 g/dl (12.5-16.0); MEAN CORPUSCULAR HEMOGLOBIN 34 pg (27.0-31.0)
[2017-12-26 06:56] LABS: ALBUMIN 2.5 gm/dL (3.5-5.0); BILIRUBIN,TOTAL 0.2 mg/dL (0.0-1.0); CREATININE, serum 0.3 mg/dL (0.52-1.25); POTASSIUM 3.6 mmol/L (3.4-5.0); TOTAL PROTEIN 5.5 gm/dL (6.4-8.2)
[2017-12-26 07:45] VITALS: BP 127/69; PULSE 107; TEMP 98.5
[2017-12-26 11:51] VITALS: BP 128/61; PULSE 80; TEMP 98.1
[2017-12-26 17:09] VITALS: BP 117/63; PULSE 108; TEMP 98.5
[2017-12-26 20:27] VITALS: BP 134/71; PULSE 120; TEMP 98.4
[2017-12-27 00:10] VITALS: BP 139/73; PULSE 105; TEMP 98.4
[2017-12-27 04:27] VITALS: BP 131/68; PULSE 97; TEMP 98.7
[2017-12-27 08:29] VITALS: BP 110/58; PULSE 107; TEMP 99
[2017-12-27 12:17] VITALS: BP 102/53; PULSE 109; TEMP 98.2
[2017-12-27] MEDS ORDERED: K-DUR20 MEQ PO (12:33)
[2017-12-27] MEDS ORDERED: LEVAQUIN 5500 MG/TA1 PO (12:33)
[2017-12-27] MEDS ORDERED: IPRATROPIUM BROM3 M1 IH (12:35)
== END 2017-12-27 13:30 | disposition home or self-care (01) | DRG 643 ==
LOC: EUO 09:57 → MEDICAL 09:58 → EUO 13:30 → MEDICAL 13:31
PROVIDERS: Family Medicine
DX: E22.2 Syndrome of inappropriate secretion of antidiuretic hormone (principal); J18.9 Pneumonia, unspecified organism; F10.239 Alcohol dependence with withdrawal, unspecified; I10 Essential (primary) hypertension; Y90.0 Blood alcohol level of less than 20 mg/100 ml
CPT/HCPCS: J0456; J0696; J1940; J7030; J7050

== ENCOUNTER 2018-05-11 10:32 | Inpatient (IN) | payer MEDICARE ==
[~2018-05-11] VITALS: Ht 154.9 cm; Wt 42.1 kg
[~2018-05-11 10:32] MED LIST changes: +IPRATROPIUM BROM3 M1 IH; +LEVAQUIN 5500 MG/TA1 PO; +ZOLOFT 25MG25 MG PO
[2018-05-11 10:58] LABS: BASO % 0.6 % (0.0-2.0); GRAN # 5.6 (1.4-6.5); GRAN % 78.5 % (42.2-75.2); HEMATOCRIT 37.6 % (37.0-47.0); HEMOGLOBIN 14.1 g/dl (12.5-16.0); LYMPH # 0.6 (1.2-3.4); LYMPH % 8.7 % (20.0-51.0); MEAN CELL VOLUME 90 fl (80.0-100.0); MEAN CORPUSCULAR HEMOGLOBIN 34 pg (27.0-31.0); MEAN CORPUSCULAR HGB CONC 38 g/dl (33.0-37.0); MEAN PLATELET VOLUME 8.9 fl (7.4-10.4); MONO # 0.8 (0.1-0.6); MONO % 11.8 % (1.7-9.3); PLATELET COUNT 124 K/mm3 (130-400); RED BLOOD COUNT 4.16 M/mm3 (4.10-5.30)
[2018-05-11 11:07] VITALS: BP 119/60; PULSE 94; TEMP 98.1
[2018-05-11 11:10] LABS: ALBUMIN 3.7 gm/dL (3.5-5.0); BILIRUBIN,TOTAL 0.6 mg/dL (0.0-1.0); CALCIUM 7.9 mg/dL (8.4-10.2); CREATININE, serum 0.28 mg/dL (0.52-1.25); POTASSIUM 3.2 mmol/L (3.4-5.0); TOTAL PROTEIN 6.9 gm/dL (6.4-8.2)
[2018-05-11 15:12] LABS: CALCIUM 8.1 mg/dL (8.4-10.2); CREATININE, serum 0.45 mg/dL (0.52-1.25); MAGNESIUM 1.8 mg/dL (1.6-2.3); POTASSIUM 3.1 mmol/L (3.4-5.0)
[2018-05-11 15:40] LABS: INR 0.9 (0.8-3.0)
[2018-05-11 15:42] LABS: PARTIAL THROMBOPLASTIN TIME 36.5 SECONDS (26.0-37.0)
[2018-05-11 15:46] VITALS: BP 104/59; PULSE 105; TEMP 97.8
[2018-05-11 19:41] VITALS: BP 147/77; PULSE 67; TEMP 97.4
[2018-05-11 20:22] LABS: CALCIUM 8.1 mg/dL (8.4-10.2); CREATININE, serum 0.46 mg/dL (0.52-1.25); POTASSIUM 3.1 mmol/L (3.4-5.0)
[2018-05-11 22:58] VITALS: BP 121/66; PULSE 91; TEMP 97.4
[2018-05-12] VITALS (9 sets, daily range): BP systolic 112–143; BP diastolic 61–73; PULSE 90–116; TEMP 97.2–99.4
[2018-05-12 02:21] LABS: COLLECTION METHOD CLEAN CATCH
[2018-05-12 02:24] LABS: BASO % 0.6 % (0.0-2.0); EOS % 0.6 % (0-4.0); GRAN % 72.2 % (42.2-75.2); HEMATOCRIT 41.1 % (37.0-47.0); LYMPH # 0.8 (1.2-3.4); LYMPH % 11.1 % (20.0-51.0); MEAN CELL VOLUME 92 fl (80.0-100.0); MEAN CORPUSCULAR HEMOGLOBIN 34 pg (27.0-31.0); MEAN CORPUSCULAR HGB CONC 37 g/dl (33.0-37.0); MEAN PLATELET VOLUME 9.2 fl (7.4-10.4); MONO # 1.1 (0.1-0.6); MONO % 15.2 % (1.7-9.3); PLATELET COUNT 146 K/mm3 (130-400); RED BLOOD COUNT 4.46 M/mm3 (4.10-5.30); REDCELL DISTRIBUTION WIDTH-CV 13.2 % (11.5-14.5)
[2018-05-12 02:34] LABS: AMORPHOUS CRYSTAL Present /uL; MUCOUS Present /lpf; PH 7 (5-8); SQUAMOUS EPITHELIAL 0-2 /hpf; URINE APPEARANCE Cloudy; URINE BACTERIA Rare /hpf; URINE BILIRUBIN Negative (NEGATIVE); URINE BLOOD Negative (NEGATIVE); URINE COLOR Yellow; URINE GLUCOSE Negative (NEGATIVE); URINE KETONE Trace (NEGATIVE); URINE LEUKOCYTE ESTERASE Negative (NEGATIVE); URINE NITRATE Negative (NEGATIVE); URINE PROTEIN(semi-quant) Negative (NEGATIVE); URINE RBC 0-2 /hpf; URINE UROBILINOGEN Negative (NEGATIVE)
[2018-05-12 02:35] LABS: CALCIUM 8.3 mg/dL (8.4-10.2); CREATININE, serum 0.37 mg/dL (0.52-1.25); POTASSIUM 3.6 mmol/L (3.4-5.0)
[2018-05-12 02:39] LABS: TRICYCLIC ANTIDEPRESS URINE NEGATIVE
[2018-05-12 07:43] LABS: CALCIUM 7.9 mg/dL (8.4-10.2); CREATININE, serum 0.34 mg/dL (0.52-1.25); POTASSIUM 3.7 mmol/L (3.4-5.0)
[2018-05-12 14:24] LABS: CALCIUM 8.3 mg/dL (8.4-10.2); CREATININE, serum 0.37 mg/dL (0.52-1.25); POTASSIUM 3.9 mmol/L (3.4-5.0)
[2018-05-12 22:25] LABS: CALCIUM 7.9 mg/dL (8.4-10.2); CREATININE, serum 0.3 mg/dL (0.52-1.25); POTASSIUM 3.4 mmol/L (3.4-5.0)
[2018-05-13] VITALS (9 sets, daily range): BP systolic 107–136; BP diastolic 48–75; PULSE 90–107; TEMP 97.6–98.7
[2018-05-13 07:49] LABS: ANION GAP 8 mmol/L (7-16); CARBON DIOXIDE 24 mmol/L (22-30); CHLORIDE 93 mmol/L (98-107); CREATININE, serum 0.31 mg/dL (0.52-1.25); GLUCOSE 154 mg/dL (74-106); POTASSIUM 3.6 mmol/L (3.4-5.0); SODIUM 125 mmol/L (137-145)
[2018-05-13 07:54] LABS: BLOOD UREA NITROGEN < 2 mg/dL (7-17)
[2018-05-13 14:29] LABS: CALCIUM 8.5 mg/dL (8.4-10.2); CREATININE, serum 0.34 mg/dL (0.52-1.25); POTASSIUM 3.7 mmol/L (3.4-5.0)
[2018-05-13 21:21] LABS: CALCIUM 8.6 mg/dL (8.4-10.2); CREATININE, serum 0.45 mg/dL (0.52-1.25)
[2018-05-14 04:24] VITALS: BP 128/74; PULSE 85; TEMP 97.7
[2018-05-14 07:32] LABS: CALCIUM 7.9 mg/dL (8.4-10.2); CREATININE, serum 0.32 mg/dL (0.52-1.25); POTASSIUM 3.8 mmol/L (3.4-5.0)
[2018-05-14 07:36] VITALS: BP 128/67; PULSE 78; TEMP 98.2
[2018-05-14] MEDS ORDERED: TYLENOL 325MG325 MG PO (08:58)
[2018-05-14] MEDS ORDERED: NATURE'S BLEND100 M2 PO (08:58)
[2018-05-14] MEDS ORDERED: DUO-KAPS1 CAP PO (08:58)
== END 2018-05-14 10:39 | disposition home or self-care (01) | DRG 641 ==
LOC: EUO 10:32 → MEDICAL 13:05
PROVIDERS: Family Medicine
DX: E87.1 Hypo-osmolality and hyponatremia (principal); F10.239 Alcohol dependence with withdrawal, unspecified; E44.0 Moderate protein-calorie malnutrition; Z68.1 Body mass index [BMI] 19.9 or less, adult; E86.0 Dehydration; J44.9 Chronic obstructive pulmonary disease, unspecified; I10 Essential (primary) hypertension; F17.210 Nicotine dependence, cigarettes, uncomplicated; E87.6 Hypokalemia; M54.5 Low back pain
CPT/HCPCS: A9284; J1644; J2060; J3480; J7030

== ENCOUNTER → 2018-08-16 | Outpatient (CLI) | payer MEDICARE ==
[~2018-08-16] MED LIST changes: +DUO-KAPS1 CAP PO; +NATURE'S BLEND100 M2 PO
== END ==
LOC: COL.RAD 07:24
DX: R63.4 Abnormal weight loss (principal); R19.7 Diarrhea, unspecified; Z90.710 Acquired absence of both cervix and uterus
CPT/HCPCS: Q9967

== ENCOUNTER 2018-08-28 13:57 | Outpatient (CLI) | payer MEDICARE ==
[~2018-08-28] VITALS: Ht 154.9 cm; Wt 49.3 kg
[2018-08-28 14:26] LABS: BASO % 0.3 % (0.0-2.0); EOS % 0.3 % (0-4.0); GRAN # 8.7 (1.4-6.5); GRAN % 84.2 % (42.2-75.2); HEMATOCRIT 38.8 % (37.0-47.0); HEMOGLOBIN 14.3 g/dl (12.5-16.0); LYMPH % 9.5 % (20.0-51.0); MEAN CELL VOLUME 90 fl (80.0-100.0); MEAN CORPUSCULAR HEMOGLOBIN 33 pg (27.0-31.0); MEAN CORPUSCULAR HGB CONC 37 g/dl (33.0-37.0); MEAN PLATELET VOLUME 8.5 fl (7.4-10.4); MONO # 0.5 (0.1-0.6); MONO % 5.2 % (1.7-9.3); PLATELET COUNT 234 K/mm3 (130-400); REDCELL DISTRIBUTION WIDTH-CV 11.9 % (11.5-14.5)
[2018-08-28 14:45] VITALS: BP 156/70; PULSE 91; TEMP 98.3
[2018-08-28 14:49] LABS: ALBUMIN 4.3 gm/dL (3.5-5.0); BILIRUBIN,TOTAL 1.1 mg/dL (0.0-1.0); CALCIUM 8.8 mg/dL (8.4-10.2); CREATININE, serum 0.4 mg/dL (0.52-1.25); POTASSIUM 3.3 mmol/L (3.4-5.0); TOTAL PROTEIN 7.6 gm/dL (6.4-8.2)
[2018-08-28] MEDS ORDERED: TYLENOL PM EXTR1 TA1 PO (16:07)
[2018-08-28 18:04] VITALS: BP 150/76; PULSE 91; TEMP 98.5
[2018-08-28 18:12] VITALS: BP 150/76; PULSE 91; TEMP 98.5
[2018-08-28 20:29] VITALS: BP 138/59; PULSE 96; TEMP 98.2
[2018-08-28 21:11] VITALS: BP 138/59; PULSE 96; TEMP 98.2
[2018-08-29 00:44] VITALS: BP 98/48; PULSE 95; TEMP 98.5
[2018-08-29 00:51] VITALS: BP 130/75
[2018-08-29 04:49] VITALS: BP 125/54; PULSE 91; TEMP 97.9
[2018-08-29 06:22] LABS: ALBUMIN 3.9 gm/dL (3.5-5.0); BILIRUBIN,TOTAL 1.1 mg/dL (0.0-1.0); CALCIUM 9.2 mg/dL (8.4-10.2); CREATININE, serum 0.64 mg/dL (0.52-1.25); POTASSIUM 3.8 mmol/L (3.4-5.0); TOTAL PROTEIN 7.1 gm/dL (6.4-8.2)
[2018-08-29 07:51] VITALS: BP 142/59; PULSE 88; TEMP 98.1
[2018-08-29] MEDS ORDERED: ZOLOFT 25MG25 MG PO (09:54)
== END 2018-08-29 10:48 | disposition home or self-care (01) ==
LOC: EUO 13:57 → MEDICAL 16:56 → EUO 08-29 10:48
PROVIDERS: Family Medicine
DX: E87.1 Hypo-osmolality and hyponatremia (principal)
CPT/HCPCS: OP; G0378; J3411; J7030

== ENCOUNTER 2018-11-20 15:24 | Emergency (ER) | payer MEDICARE ==
[~2018-11-20] VITALS: Ht 165.1 cm; Wt 54.5 kg
[~2018-11-20 15:24] MED LIST changes: +TYLENOL PM EXTR1 TA1 PO
[2018-11-20 15:26] VITALS: TEMP 98
[2018-11-20 16:35] LABS: COLLECTION METHOD CLEAN CATCH
[2018-11-20 16:48] LABS: AMORPHOUS CRYSTAL Present /uL; PH 7 (5-8); SQUAMOUS EPITHELIAL 0-2 /hpf; URINE APPEARANCE Clear; URINE BACTERIA None Seen /hpf; URINE BILIRUBIN Negative (NEGATIVE); URINE BLOOD Negative (NEGATIVE); URINE COLOR Straw; URINE GLUCOSE Negative (NEGATIVE); URINE KETONE Negative (NEGATIVE); URINE LEUKOCYTE ESTERASE Negative (NEGATIVE); URINE NITRATE Negative (NEGATIVE); URINE PROTEIN(semi-quant) Negative (NEGATIVE); URINE RBC 0-2 /hpf; URINE UROBILINOGEN Negative (NEGATIVE); URINE WBC None Seen /hpf
[2018-11-20 16:54] LABS: TRICYCLIC ANTIDEPRESS URINE NEGATIVE
[2018-11-20 17:22] LABS: BASO # 0.1 (0.0-0.2); BASO % 0.4 % (0.0-2.0); EOS # 0.2 (0.0-0.7); EOS % 1.6 % (0-4.0); GRAN # 10.5 (1.4-6.5); GRAN % 83.3 % (42.2-75.2); HEMATOCRIT 41.2 % (37.0-47.0); HEMOGLOBIN 14.4 g/dl (12.5-16.0); LYMPH % 8.3 % (20.0-51.0); MEAN CELL VOLUME 92 fl (80.0-100.0); MEAN CORPUSCULAR HEMOGLOBIN 32 pg (27.0-31.0); MEAN CORPUSCULAR HGB CONC 35 g/dl (33.0-37.0); MEAN PLATELET VOLUME 8.6 fl (7.4-10.4); MONO # 0.7 (0.1-0.6); MONO % 5.8 % (1.7-9.3); PLATELET COUNT 247 K/mm3 (130-400); PROTHROMBIN TIME 10.8 SECONDS (9.7-12.8); RED BLOOD COUNT 4.47 M/mm3 (4.10-5.30); REDCELL DISTRIBUTION WIDTH-CV 12.8 % (11.5-14.5)
[2018-11-20] MEDS ORDERED: ZANTAC 150MG T150 MG PO (17:23)
[2018-11-20] MEDS ORDERED: NORVASC2.5 MG PO (17:23)
[2018-11-20] MEDS ORDERED: ANTABUSE 250MG250 MG PO (17:23)
[2018-11-20] MEDS ORDERED: ZOLOFT 50MG50 MG PO (17:23)
[2018-11-20] MEDS ORDERED: XANAX .25M0.25 MG/TA PO (17:24)
[2018-11-20] MEDS ORDERED: PRILOSEC 20MG20 MG PO (17:24)
[2018-11-20 17:25] LABS: PARTIAL THROMBOPLASTIN TIME 35.3 SECONDS (26.0-37.0)
[2018-11-20] MEDS ORDERED: AZULFIDINE500 MG/TAB PO (17:25)
[2018-11-20] MEDS ORDERED: ANORO IH (17:25)
[2018-11-20 17:30] LABS: ALANINE AMINOTRANSFERASE 20 U/L (9-52); ALBUMIN 4.4 gm/dL (3.5-5.0); ALKALINE PHOSPHATASE 135 U/L (50-136); ANION GAP 10 mmol/L (7-16); AST,SGOT 25 U/L (15-37); BILIRUBIN,TOTAL 0.4 mg/dL (0.0-1.0); BLOOD UREA NITROGEN 15 mg/dL (7-17); CALCIUM 9.2 mg/dL (8.4-10.2); CARBON DIOXIDE 28 mmol/L (22-30); CHLORIDE 91 mmol/L (98-107); CREATININE, serum 0.66 mg/dL (0.52-1.25); GLUCOSE 124 mg/dL (74-106); POTASSIUM 3.8 mmol/L (3.4-5.0); SODIUM 130 mmol/L (137-145); TOTAL PROTEIN 7.8 gm/dL (6.4-8.2)
[2018-11-20 17:36] LABS: ALCOHOL(ethanol),MEDICAL < 10 mg/dL
[2018-11-20 17:43] LABS: TROPONIN-I < 0.012 ng/mL (0.000-0.035)
[2018-11-20 17:46] LABS: PROLACTIN 28.1 ng/mL (3.0-18.6)
[2018-11-20 21:30] VITALS: BP 103/57; PULSE 86
== END 2018-11-20 21:30 | disposition short-term general hospital (02) ==
LOC: COL.ER 15:24 → EDBD 15:25 → COL.ER 15:25
PROVIDERS: Emergency Medicine
DX: R41.82 Altered mental status, unspecified (principal); I10 Essential (primary) hypertension; K21.9 Gastro-esophageal reflux disease without esophagitis; F17.210 Nicotine dependence, cigarettes, uncomplicated
CPT/HCPCS: J2405; J7030

== ENCOUNTER → 2019-08-14 | Outpatient (CLI) | payer MEDICARE ==
[~2019-08-14] MED LIST changes: +ANTABUSE 250MG250 MG PO; +AZULFIDINE500 MG/TAB PO; +NORVASC2.5 MG PO; +XANAX .25M0.25 MG/TA PO; +ZANTAC 150MG T150 MG PO
--- NOTE | 2019-08-15 15:13 | NUR ---
Patient's Holter results faxed at this time and spoke with Dr. Hull regarding Bigeminy and Trigeminy on report.
== END ==
LOC: COL.CARD 08:10
DX: I49.9 Cardiac arrhythmia, unspecified (principal)

== ENCOUNTER → 2019-09-27 | Outpatient (CLI) | payer MEDICARE ==
[~2019-09-27] VITALS: Ht 154.9 cm; Wt 53.0 kg
[~2019-09-27] MED LIST changes: +ASPIRIN 81M81 MG/TA2 PO; +KEPPRA 500MG500 MG PO; +MUCINEX 60600 MG/TA1 PO; +NASACORT OTC NS; +PROBIOTIC ACID1 EAC3 PO; +VENTOLIN0.09 MG IH; +ZEBETA 5MG5 MG PO
[2019-09-27 11:13] VITALS: BP 161/84; PULSE 89
[2019-09-27 12:09] VITALS: BP 145/43; PULSE 117
[2019-09-27 12:10] VITALS: BP 149/61; PULSE 116
[2019-09-27 12:11] VITALS: BP 148/60; PULSE 117
[2019-09-27 12:12] VITALS: BP 150/66; PULSE 116
== END ==
LOC: COL.CARD 10:17
DX: I25.10 Atherosclerotic heart disease of native coronary artery without angina pectoris (principal); E78.00 Pure hypercholesterolemia, unspecified; I49.3 Ventricular premature depolarization
CPT/HCPCS: A9500; J2785

== ENCOUNTER 2022-04-11 20:16 | Emergency (ER) | payer MEDICARE ==
[~2022-04-11] VITALS: Ht 154.9 cm; Wt 40.9 kg
[2022-04-11 21:57] LABS: BASO # 0.1 K/mm3 (0.0-0.2); BASO % 0.5 % (0.0-2.0); EOS # 0.1 K/mm3 (0.0-0.7); EOS % 0.6 % (0.0-4.0); GRAN # 10.9 K/mm3 (1.4-6.5); GRAN % 85.9 % (42.2-75.2); HEMATOCRIT 39.4 % (37.0-47.0); HEMOGLOBIN 14.6 g/dl (12.5-16.0); LYMPH % 7.7 % (20.0-51.0); MEAN CELL VOLUME 97 fl (80.0-100.0); MEAN CORPUSCULAR HEMOGLOBIN 36 pg (27-31); MEAN CORPUSCULAR HGB CONC 37 g/dl (33.0-37.0); MONO # 0.6 K/mm3 (0.1-0.6); MONO % 4.8 % (1.7-9.3); PLATELET COUNT 229 K/mm3 (130-400); RED BLOOD COUNT 4.05 M/mm3 (4.10-5.30); REDCELL DISTRIBUTION WIDTH-CV 11.9 % (11.5-14.5)
[2022-04-11 22:24] LABS: ALBUMIN 3.7 gm/dL (3.4-4.8); BILIRUBIN,TOTAL 0.7 mg/dL (0.2-1.2); CALCIUM 9.1 mg/dL (8.4-10.2); CREATININE, serum 0.58 mg/dL (0.57-1.11); POTASSIUM 3.7 mmol/L (3.5-4.5)
[2022-04-11 23:00] VITALS: TEMP 98.3
[2022-04-12] MEDS ORDERED: NORCO 325 MG-51 TAB PO (01:22)
[2022-04-12 02:08] VITALS: BP 124/78; PULSE 76
== END 2022-04-12 02:08 | disposition home or self-care (01) ==
LOC: COL.ER 20:16
PROVIDERS: Nurse Practitioner
DX: S42.201A Unspecified fracture of upper end of right humerus, initial encounter for closed fracture (principal); S41.011A Laceration without foreign body of right shoulder, initial encounter; S00.83XA Contusion of other part of head, initial encounter; E87.1 Hypo-osmolality and hyponatremia; F17.210 Nicotine dependence, cigarettes, uncomplicated; Z88.5 Allergy status to narcotic agent; W01.0XXA Fall on same level from slipping, tripping and stumbling without subsequent striking against object, initial encounter
CPT/HCPCS: J2270; J7030

== ENCOUNTER 2024-06-07 14:48 | Inpatient (IN) | payer MEDICARE ==
[~2024-06-07] VITALS: Ht 149.9 cm; Wt 43.5 kg
[~2024-06-07 14:48] MED LIST changes: +NORCO 325 MG-51 TAB PO
[2024-06-07] MEDS ORDERED: Morphine 4 MG/ML VIAL IV ONE ×2 (15:15→16:45)
[2024-06-07] MEDS ORDERED: Ondansetron 4 MG/2 ML VIAL IV ONE ×2 (15:15→16:45)
[2024-06-07 15:40] LABS: BASO # 0.1 K/mm3 (0.0-0.2); BASO % 0.4 % (0.0-2.0); EOS % 0.2 % (0.0-4.0); GRAN # 19.7 K/mm3 (1.4-6.5); GRAN % 88.2 % (42.2-75.2); HEMOGLOBIN 13.2 g/dl (12.5-16.0); LYMPH % 4.4 % (20.0-51.0); MEAN CELL VOLUME 96 fl (80.0-100.0); MEAN CORPUSCULAR HEMOGLOBIN 35 pg (27-31); MEAN CORPUSCULAR HGB CONC 37 g/dl (33.0-37.0); MEAN PLATELET VOLUME 8.6 fl (7.4-10.4); MONO # 1.3 K/mm3 (0.1-0.6); MONO % 5.9 % (1.7-9.3); PLATELET COUNT 260 K/mm3 (130-400); RED BLOOD COUNT 3.77 M/mm3 (4.10-5.30); REDCELL DISTRIBUTION WIDTH-CV 12.4 % (11.5-14.5)
[2024-06-07 15:42] LABS: HEMATOCRIT 36.1 % (37.0-47.0); INR 1.1 (0.8-3.0); PROTHROMBIN TIME 11.4 SECONDS (9.7-12.8)
[2024-06-07 16:24] LABS: ALBUMIN 3.7 g/dL (3.4-4.8); BILIRUBIN,TOTAL 0.6 mg/dL (0.2-1.2); CALCIUM 9.2 mg/dL (8.4-10.2); CREATININE, serum 0.65 mg/dL (0.57-1.11); POTASSIUM 3.9 mEq/L (3.5-4.5); TOTAL PROTEIN 6.6 g/dl (6.2-8.1)
[2024-06-07 17:07] LABS: COLLECTION METHOD CLEAN CATCH
[2024-06-07 17:12] LABS: PH 6.5 (5.0-8.5); URINE APPEARANCE CLEAR (CLEAR/HAZY); URINE BLOOD NEGATIVE (NEGATIVE); URINE COLOR YELLOW (YELLOW); URINE GLUCOSE NEGATIVE (NEGATIVE); URINE KETONE NEGATIVE (NEGATIVE); URINE NITRATE NEGATIVE (NEGATIVE); URINE PROTEIN(semi-quant) NEGATIVE (NEGATIVE); URINE UROBILINOGEN 0.2 E.U/dL (0.2-1.0)
[2024-06-07] MEDS ORDERED: TOPROL XL 50MG50 MG PO (17:52)
[2024-06-07] MEDS ORDERED: Acetaminophen 500 MG TAB PO PRN (18:45)
[2024-06-07] MEDS ORDERED: Morphine 4 MG/ML VIAL IV PRN (18:45)
--- NOTE | 2024-06-07 19:25 | NUR ---
KEILY FROM ER CALLED REPORT ON PATIENT AT THIS TIME.
[2024-06-07 21:20] VITALS: BP 139/70; PULSE 70; TEMP 98.5
[2024-06-07 21:22] VITALS: PULSE 74
[2024-06-07 21:30] VITALS: BP_SYST 139
--- NOTE | 2024-06-07 21:30 | NUR ---
PATIENT ARRIVED TO ROOM #354 VIA STRETCHER FROM ER. PATIENT ASSISTED TO BED WITH SLIDE BOARD. PATIENT TOLERATED WELL. PATIENT C/O PAIN. PATIENT STATED PAIN LEVEL WAS 5 ON SCALE OF 0 TO 10. MEDICATION GIVEN, SEE EMAR. INITAL INTAKE AND INTIAL ASSESSMENT COMPLETED AT THIS TIME. PATIENT TOLERATED WELL. PATIENT CHANGED INTO YELLOW GOWN, YELLOW SOCKS, AND FALL ARMBAND PLACED ON. PATIENT REQUESTED PUDDING AND APPLESAUCE. BOTH GIVEN. PATIENT VERBALIZED UNDERSTNADING OF CALL LIGHT AND BED CONTROLS. ALL NEEDS MET. BED IN LOW POSITION WITH WHEELS LOCKED WITH RAILS UP X3 AND CALL LIGHT WITHIN REACH. BED ALARM ON.
[2024-06-08] VITALS (13 sets, daily range): BP systolic 106–157; BP diastolic 51–81; PULSE 51–106; TEMP 97.5–98.8
[2024-06-08] MEDS ORDERED: NS 1,000 ML IV SCH ×2 (04:45→10:30)
[2024-06-08 06:30] LABS: BASO % 0.3 % (0.0-2.0); EOS % 0.1 % (0.0-4.0); GRAN # 9.4 K/mm3 (1.4-6.5); HEMATOCRIT 31.9 % (37.0-47.0); HEMOGLOBIN 11.9 g/dl (12.5-16.0); LYMPH # 1.3 K/mm3 (1.2-3.4); LYMPH % 10.4 % (20.0-51.0); MEAN CELL VOLUME 96 fl (80.0-100.0); MEAN CORPUSCULAR HEMOGLOBIN 36 pg (27-31); MEAN CORPUSCULAR HGB CONC 37 g/dl (33.0-37.0); MEAN PLATELET VOLUME 9.3 fl (7.4-10.4); MONO # 1.4 K/mm3 (0.1-0.6); MONO % 11.6 % (1.7-9.3); PLATELET COUNT 219 K/mm3 (130-400); RED BLOOD COUNT 3.33 M/mm3 (4.10-5.30); REDCELL DISTRIBUTION WIDTH-CV 12.4 % (11.5-14.5)
[2024-06-08 06:44] LABS: CALCIUM 8.9 mg/dL (8.4-10.2); CREATININE, serum 0.84 mg/dL (0.57-1.11); POTASSIUM 5.1 mEq/L (3.5-4.5)
--- NOTE | 2024-06-08 08:51 | NUR ---
PATIENT RESTING IN BED. ALERT AND ORIENTED. VSS. PATIENT AT 100% ON O2. THIS RN REMOVED O2. PATIENT STABLE ON RA. PATIENT C/O PAIN RATING IT A 6/10. THIS RN ADMINISERED PRN TYLENOL D/T BEING TOO EARLY FOR MORPHINE. THIS RN ASSISTED PATIENT IN ELEVATING LOWER EXTREMITIES. CMS NORMAL. SCDS ON. DENIES FURTHER NEEDS OR CONCERNS AT THIS TIME. CALL LIGHT WITHIN REACH.
[2024-06-08] MEDS ORDERED: Sertraline 50 MG TAB PO SCH (09:00)
[2024-06-08] MEDS ORDERED: VITAMIN D31000 I1 PO (09:32)
[2024-06-08] MEDS ORDERED: Sodium Zirconium Cyclosilicate for Oral Susp 10 GM PACKET PO ONE (10:15)
[2024-06-08] MEDS ORDERED: oxyCODONE 5 MG TAB PO PRN (10:30)
--- NOTE | 2024-06-08 11:05 | NUR ---
animal control licensing worker met with patient to discuss discharge planning. Patient lives alone in [place]. Patient has Diane, friend, P# [phone], listed as emergency contact. SW discussed next of kin or DPOA-HC. Patient reported she has a DPOA-HC that was completed through [employer] but does not remember if it was her nephew's or sister in law. Nephew - Anish P# [phone] and Nephew's - Vita - P# [phone]. PCP is currently [facility] whom is retiring, patient would be interested in either Dr. De Oliveira or Dr. Geiger for new PCP. Pharmacy is [facility]. No issues affording medications. DME is [facility], wheelchair. Insurance is Medicare A and B, [facility] Options (through [employer]). Patient reports she was independent with ADLS prior to hospitalization. Patient reports she transports herself to and from appointments. SW discussed rehab options with patient, SW provided Medicare.gov for SNF and IPR. SW explained PT and OT would be in later to evaluate her for rehab. Patient is okay with a referral to [facility] at this time. JAXON secure emailed referral to [facility]. JAXON contacted [employer] office and confirmed patient has a DPOA-HC, DPOA financial and Living Will. Patient provided the employee benefits attorney's office permission to send the information to the social psychologist via email. SW will add these forms to the chart when she receives them. Discharge plan: SNF or IPR- pending PT/OT evaluations
--- NOTE | 2024-06-08 11:34 | NUR ---
fiber optic assembly worker received the [facility]-, [facility] financial, living will and HIPAA authorization. [facility]- appoints patient's friend, Diane, as primary then Ceferino. [facility] financial appoints Tao. SW notified patient to ensure sure knew whom was her primary agent. Patient understood. SW placed the copy of the forms on the patient's chart. Discharge plan: SNF or IPR - pending PT and OT recommendations
--- NOTE | 2024-06-08 11:42 | NUR ---
feed elevator worker contacted Diane, patient's DPOA-HC, to make contact and discuss discharge plan. Diane explained she was currently heading out of town but if anything were to happen over the weekend, she could be reached by telephone. Diane explained she would try to call patient's cell phone and chat with her. JAXON explained patient may need rehab upon discharge pending PT and OT evaluations and she has sent a referral to [facility] with patient's permission. Diane has no questions or concerns at this time but wanted to make sure the patient knew she would visit after she returns to town. Discharge plan: SNF or IPR - Pending PT and OT evaluations.
--- NOTE | 2024-06-08 12:07 | NUR ---
distillery worker general was notified [facility] is able to accept. JAXON was notified that [facility] would like to review patient's therapy notes once they are completed and ensure the patient is aware she would be unable to smoke or drink while in their facility. JAXON relayed this information to JAXON Guajardo.
--- NOTE | 2024-06-08 15:00 | NUR ---
JAXON faxed PT/OT notes to [facility] per request. [facility] accept pt. JAXON emailed them both PT/OT notes as well. Discharge Plan: SNF
[2024-06-08] MEDS ORDERED: Acetaminophen 500 MG TAB PO SCH (16:00)
--- NOTE | 2024-06-08 18:49 | NUR ---
PATIENT SITTING UP IN BED EATING SALAD FOR DINNER WITH TV ON WITH NO FAMILY PRESENT WITH NO ACUTE DISTRESS NOTED. PATIENT ON ROOM AIR. NS INFUSING INTO LEFT HAND WITH NO COMPLICATIONS NOTED. BEDSIDE SHIFT REPORT COMPLETED WITH CAROLE AT THIS TIME. PATIENT DENIES ANY NEEDS. BED IN LOW POSITION WITH WHEELS LOCKED WITH RAILS UP X3 AND CALL LIGHT WITHIN REACH. BED ALARM ON.
[2024-06-09] VITALS (11 sets, daily range): BP systolic 98–172; BP diastolic 58–75; PULSE 66–76; TEMP 97.8–98.4
[2024-06-09 06:14] LABS: BASO # 0.1 K/mm3 (0.0-0.2); BASO % 0.7 % (0.0-2.0); EOS # 0.1 K/mm3 (0.0-0.7); EOS % 1.4 % (0.0-4.0); GRAN # 7.1 K/mm3 (1.4-6.5); LYMPH # 0.9 K/mm3 (1.2-3.4); LYMPH % 9.9 % (20.0-51.0); MEAN CELL VOLUME 96 fl (80.0-100.0); MEAN CORPUSCULAR HEMOGLOBIN 35 pg (27-31); MEAN CORPUSCULAR HGB CONC 37 g/dl (33.0-37.0); MEAN PLATELET VOLUME 9.1 fl (7.4-10.4); MONO # 0.9 K/mm3 (0.1-0.6); MONO % 9.4 % (1.7-9.3); PLATELET COUNT 171 K/mm3 (130-400); RED BLOOD COUNT 2.83 M/mm3 (4.10-5.30); REDCELL DISTRIBUTION WIDTH-CV 12.3 % (11.5-14.5)
[2024-06-09 06:19] LABS: HEMATOCRIT 27.2 % (37.0-47.0)
[2024-06-09 06:32] LABS: CALCIUM 8.1 mg/dL (8.4-10.2); CREATININE, serum 0.47 mg/dL (0.57-1.11); POTASSIUM 3.3 mEq/L (3.5-4.5)
--- NOTE | 2024-06-09 07:30 | NUR ---
PATIENT ALERT AND ORIENTED X4. REPORTS PAIN TO PELVIC AREA RATING IT A 8/10. PATIENT ON 2L 02/. BLOOD PRESSURE ELEVATED AT THIS TIME, MORNING MEDICATION GIVEN. PATIENT HAS ABRASION TO RIGHT KNEE. PATIENT IN BED RESTING. SHIFT ASSESSMENT COMPLETED. CALL LIGHT WITHIN REACH. BED ALARM ON.NO FURTHER NEEDS AT THIS TIME.
[2024-06-09] MEDS ORDERED: Omeprazole 20 MG **** subs to Pantoprazole 40 MG PO SCH (08:53)
[2024-06-09] MEDS ORDERED: Cholecalciferol (Vit D3) 25 MCG (1,000 Units) TAB PO SCH (09:00)
[2024-06-09] MEDS ORDERED: Polyethylene Glycol 3350 17 GM PDS PO SCH (09:08)
[2024-06-09] MEDS ORDERED: oxyCODONE 5 MG TAB PO PRN (09:15)
--- NOTE | 2024-06-09 11:22 | NUR ---
SAW OFFBEARER met with pt to follow up with her decision of [facility] and [facility]. Pt has been accepted at all facilities. SAW OFFBEARER checked in with pt twice today but she is unable to make a decision. Pt requested overnight to think about decision. SAW OFFBEARER will follow up tomorrow. D/C: SNF
--- NOTE | 2024-06-09 11:50 | NUR ---
Daata: Janessa initially declined spiritual care visit offered during Vendor Relationship Manager rounds because she is tired and wants to nap. She changed her mind and requested prayer. Assessment: Patient desired prayer for her rest. Plan of Care: Vendor Relationship Manager prayed for peaceful sleep for Patient. Patient thanked Vendor Relationship Manager. Chaplains will remain available as needed/requested while Patient is admitted to this hospital.
--- NOTE | 2024-06-09 19:30 | NUR ---
Initial shift assessment done- VSS, states doing ok tonight, has Purewick on, draining yellow urine, o2 at 2L/nc, states pain to right deep pelvis area 5/10 at this time, but if she stays fairly still the pain is better, knows she can have more pain meds at 2200, bed alarm on, no requests at this time.
[2024-06-09] MEDS ORDERED: Docusate Sodium 100 MG CAP PO SCH (21:00)
[2024-06-10] VITALS (11 sets, daily range): BP systolic 124–184; BP diastolic 63–84; PULSE 67–84; TEMP 97.9–98.7
--- NOTE | 2024-06-10 04:40 | NUR ---
States pain level 5/10 at this time-- repositioned in bed, did give roxicodone 5 mg po at this time, SCD,s put on at this time, states does not know about the DOTTY hose order, Purewick working well 1000cc of clear urine emptied, pt states she has decided to go to [facility] when discharged fron here -
[2024-06-10 05:29] LABS: BASO # 0.1 K/mm3 (0.0-0.2); BASO % 0.7 % (0.0-2.0); EOS # 0.2 K/mm3 (0.0-0.7); GRAN # 6.6 K/mm3 (1.4-6.5); GRAN % 73.7 % (42.2-75.2); LYMPH # 1.1 K/mm3 (1.2-3.4); LYMPH % 12.2 % (20.0-51.0); MEAN CELL VOLUME 97 fl (80.0-100.0); MEAN CORPUSCULAR HGB CONC 36 g/dl (33.0-37.0); MEAN PLATELET VOLUME 9.1 fl (7.4-10.4); MONO % 11.1 % (1.7-9.3); PLATELET COUNT 178 K/mm3 (130-400); RED BLOOD COUNT 2.68 M/mm3 (4.10-5.30); REDCELL DISTRIBUTION WIDTH-CV 12.2 % (11.5-14.5)
[2024-06-10 05:46] LABS: ANION GAP 10 mmol/L (7-16); CALCIUM 8.5 mg/dL (8.4-10.2); CHLORIDE 94 mEq/L (98-107); CREATININE, serum 0.45 mg/dL (0.57-1.11); GLUCOSE 103 mg/dL (70-99); HEMOGLOBIN 9.3 g/dl (12.5-16.0); MEAN CORPUSCULAR HEMOGLOBIN 35 pg (27-31); POTASSIUM 3.2 mEq/L (3.5-4.5); SODIUM 129 mEq/L (136-145)
[2024-06-10 05:47] LABS: BLOOD UREA NITROGEN < 5 mg/dL (10-20)
--- NOTE | 2024-06-10 12:07 | NUR ---
HENNA was notified by Dr. Dodge that she has choosen [facility]. Dr. Dodge would like to d/c her today there. POLY AREA SUPERVISOR attempted to contact [facility] and left a message. POLY AREA SUPERVISOR also called the facility directly with no answer. POLY AREA SUPERVISOR will continue to follow. D/C: [facility]
[2024-06-10] MEDS ORDERED: Bisacodyl 5 MG TAB PO ONE (12:15)
[2024-06-10] MEDS ORDERED: Albuterol 0.042% Neb Soln 1.25 MG/3 ML UD IH PRN (12:30)
[2024-06-10] MEDS ORDERED: Magnesium Sulfate 4% 50 ML IV ONE (13:00)
[2024-06-10] MEDS ORDERED: Budesonide Neb Susp 0.25 MG/2 ML AMP IH SCH (19:00)
[2024-06-10] MEDS ORDERED: Formoterol Neb Soln 20 MCG/2 ML UD IH SCH (19:00)
--- NOTE | 2024-06-10 19:20 | NUR ---
BEDSIDE SHIFT REPORT GIVEN. PATIENT IS AWAKE AND ALERT, SITTING UP IN BED, PURE WICK CHECKED, WORKING PATIENT IS NOT SOILED. PATIENT DECLINES ANY NEEDS AT THIS TIME. PATIENT AWARE OF WHEN NEXT PAIN MEDICATION AWAVIALBLE. CALL LIGHT WTIHIN REACH. FALL PRECAUTIONS IN PLACE. BED ALARM ON.
[2024-06-11 00:15] VITALS: BP_SYST 140
[2024-06-11 03:59] VITALS: BP 159/75; BP 184/78; PULSE 73; TEMP 97.7
[2024-06-11 04:25] VITALS: BP_SYST 159
[2024-06-11 07:23] VITALS: BP 172/69; PULSE 72; TEMP 98.3
[2024-06-11 11:33] LABS: BASO # 0.1 K/mm3 (0.0-0.2); BASO % 0.4 % (0.0-2.0); EOS # 0.1 K/mm3 (0.0-0.7); EOS % 0.7 % (0.0-4.0); GRAN % 79.8 % (42.2-75.2); HEMOGLOBIN 10.1 g/dl (12.5-16.0); LYMPH % 9.3 % (20.0-51.0); MEAN CELL VOLUME 97 fl (80.0-100.0); MEAN CORPUSCULAR HEMOGLOBIN 35 pg (27-31); MEAN CORPUSCULAR HGB CONC 36 g/dl (33.0-37.0); MONO % 9.3 % (1.7-9.3); PLATELET COUNT 242 K/mm3 (130-400); RED BLOOD COUNT 2.92 M/mm3 (4.10-5.30); REDCELL DISTRIBUTION WIDTH-CV 12.6 % (11.5-14.5)
[2024-06-11 11:35] LABS: HEMATOCRIT 28.4 % (37.0-47.0)
[2024-06-11] MEDS ORDERED: TYLENOL 500MG500 MG PO (11:36)
[2024-06-11] MEDS ORDERED: ROXICODONE 55 MG/TAB PO (11:37)
[2024-06-11] MEDS ORDERED: COLACE 100100 MG/CAP PO (11:37)
[2024-06-11] MEDS ORDERED: LEADER CLE17 GM/Dose PO (11:37)
[2024-06-11 11:54] LABS: CALCIUM 9.2 mg/dL (8.4-10.2); CREATININE, serum 0.5 mg/dL (0.57-1.11); MAGNESIUM 1.7 mg/dL (1.6-2.6); POTASSIUM 3.7 mEq/L (3.5-4.5)
[2024-06-11 12:00] VITALS: BP 146/69; PULSE 77; TEMP 98.4
[2024-06-11] MEDS ORDERED: NORVASC 5MG5 MG/TAB PO (12:08)
--- NOTE | 2024-06-11 13:12 | NUR ---
apron worker was informed pt can discharge today to [facility]. JAXON faxed discharge orders. JAXON completed IM from Medicare with pt who signed and verbalized understanding. Copy provided and original in chart. JAXON was informed by Leo at [facility] they only have 1:30pm available for transport. JAXON informed RN Jose who is agreeable and report pt is not on oxygen. Discharge Plan: [facility] at 1330
[2024-06-11] MEDS ORDERED: oxyCODONE 5 MG TAB PO ONE (13:30)
--- NOTE | 2024-06-11 13:35 | NUR ---
REPORT CALLED TO [facility] NURSE. PATIENT TAKEN VIA WHEELCHAIR TO [facility] AND LEFT IN STABLE CONDITION WITH HER FAMILY. PATIENT IV REMOVED
== END 2024-06-11 13:46 | DRG 551 ==
LOC: COL.ER 14:48 → MEDICAL 18:11
PROVIDERS: Personal Emergency Response Attendant; Physician Assistant; ADMIT Internal Medicine
DX: S32.19XA Other fracture of sacrum, initial encounter for closed fracture (principal); J96.01 Acute respiratory failure with hypoxia; K66.1 Hemoperitoneum; S32.591A Other specified fracture of right pubis, initial encounter for closed fracture; E87.1 Hypo-osmolality and hyponatremia; E44.0 Moderate protein-calorie malnutrition; Z68.1 Body mass index [BMI] 19.9 or less, adult; E87.5 Hyperkalemia; D64.9 Anemia, unspecified; D72.829 Elevated white blood cell count, unspecified; I10 Essential (primary) hypertension; G47.33 Obstructive sleep apnea (adult) (pediatric); Y93.01 Activity, walking, marching and hiking; K59.00 Constipation, unspecified; W18.39XA Other fall on same level, initial encounter; Z88.8 Allergy status to other drugs, medicaments and biological substances; Z88.2 Allergy status to sulfonamides; Z90.711 Acquired absence of uterus with remaining cervical stump; Z72.0 Tobacco use; Z90.09 Acquired absence of other part of head and neck; Z90.49 Acquired absence of other specified parts of digestive tract; Z88.0 Allergy status to penicillin; Z88.1 Allergy status to other antibiotic agents; Z86.69 Personal history of other diseases of the nervous system and sense organs; Y92.321 Football field as the place of occurrence of the external cause
CPT/HCPCS: A9270; J1650; J2270; J2405; J3475; J7030